=== PATIENT | female | born 1990 | race Caucasian/White ===

== ENCOUNTER 2016-11-19 17:28 | Emergency (ER) | payer BC ==
[2016-11-19] MEDS ORDERED: KETOROLAC TROMETHAMINE 60 MG/2 ML VIAL IM ONE (17:44)
--- NOTE | 2016-11-19 17:44 | ERNOTE ---
Back Pain ER HPI Date of Service: 11/19/16 Presenting Symptoms: other - patient was coughing when she felt a severe sharp pain in right lumbar region Time Seen by Provider: 11/19/16 17:38 Source: patient Exam Limitations: no limitations Immunizations: IMMUNIZATION HX Immunizations Up to Date Yes History of Influenza Vaccine No Allergies/Adverse Reactions: Allergies peroxide Allergy (Uncoded 11/19/16 17:34) Home Medications: HOME MEDICATIONS Cyclobenzaprine HCl [Flexeril] 10 mg PO TID #21 tablet 11/19/16 [Last Taken Unknown] Levonorgestrel [Mirena] 1 each IY DAILY 11/19/16 [Last Taken Unknown] Narrative: lumbar back pain after coughing spasm Review of Systems - Review of Systems Constitutional: Present: no symptoms reported EYE: Present: no symptoms reported ENT: Present: no symptoms reported Respiratory: Present: no symptoms reported Cardiology: Present: no symptoms reported Musculoskeletal: Present: See HPI - Patient's Past Medical History Patient History - Medical: Other Patient History - Cardiac/Respiratory: Asthma Patient History - Cancer: No Hx of Cancer Patient History - Surgical Procedures: , T & A, Other Patient History - Other: None - Social History Living Situations: home Abuse History: No History of abuse Psych History: No pertinent hx Alcohol Use: none Drug Use: none - Immunizations Immunizations Up to Date: Yes History of Influenza Vaccine: No Physical Exam - Physical Exam General Appearance: Present: wd/wn, alert, no apparent distress Ears, Nose, Throat: Present: normal ENT inspection, hearing grossly normal Neck: Present: normal inspection, nontender, supple Respiratory: Present: no respiratory distress, normal breath sounds, lungs clear Cardiovascular/Chest: Present: regular rate, rhythm, no murmur, normal peripheral pulses Back Exam: Present: normal inspection, other - pt does have right sided lumbar paravertebral muscle spasm. There appears to be no radiculopathy Neurological Exam: Present: alert, oriented, normal mood/affect DTR: N=norm/NB=norm/brisk/A=abs/DD=dull/dimin/HC=hyperactive: Knee (R): Normal, Knee (L): Normal ED Progress - Vital Signs Patient's Vital Signs:: I have reviewed the patient's vital signs. Vital Signs: Vital Signs 11/19/16 17:29 Temperature 37.3 C Pulse Rate 94 Respiratory 12 Rate Blood Pressure 147/100 O2 Sat by Pulse 99 Oximetry - Progress/Reassessment Chief Complaint: Back Pain Departure Clinical Impression: Muscle spasm - Departure Disposition: Home self-care Instructions: Low Back Strain With Rehab-SportsMed Referrals: Maikel Foreman MD [Primary Care Provider] - Prescriptions: Cyclobenzaprine HCl [Flexeril] 10 mg PO TID #21 tablet
[2016-11-19] MEDS ORDERED: CYCLOBENZAPRINE HCL 10 MG TABLET PO ONE (18:14)
[2016-11-19] MEDS ORDERED: CYCLOBENZAPRINE HCL 10 MG TABLET ONE (18:17)
[2016-11-19 18:21] VITALS: BP 142/78
== END 2016-11-19 18:27 | disposition home or self-care (01) ==
LOC: ER 17:28
DX: M62.830 Muscle spasm of back (principal)